=== PATIENT | female | born 1950 | race Caucasian/White ===

== ENCOUNTER 2021-08-27 09:15 | Outpatient (CLI) | payer OTHER | END 2021-08-27 09:22 | disposition home or self-care (01) | LOC: NUCLEAR 09:15 | PROVIDERS: ATTEND Internal Medicine | DX: R22.42 Localized swelling, mass and lump, left lower limb (principal) ==

== ENCOUNTER 2021-08-27 10:26 | Outpatient (CLI) | payer OTHER | END 2021-08-27 10:29 | disposition home or self-care (01) | LOC: RAD 10:26 | PROVIDERS: ATTEND Internal Medicine | DX: M79.671 Pain in right foot (principal) ==

== ENCOUNTER 2021-08-28 09:08 | Outpatient (CLI) | payer OTHER | END 2021-08-28 09:09 | disposition home or self-care (01) | LOC: NUCLEAR 09:08 | PROVIDERS: ATTEND Internal Medicine | DX: R22.42 Localized swelling, mass and lump, left lower limb (principal) ==

== ENCOUNTER 2021-09-17 08:40 | Outpatient (CLI) | payer OTHER | END 2021-09-17 08:43 | disposition home or self-care (01) | LOC: NUCLEAR 08:40 | PROVIDERS: ATTEND Internal Medicine | DX: I10 Essential (primary) hypertension (principal) ==

== ENCOUNTER 2024-11-22 10:15 | Outpatient (CLI) | payer OTHER | END 2024-11-22 10:17 | disposition home or self-care (01) | LOC: SONOGRAMA 10:15 | PROVIDERS: ATTEND Internal Medicine | DX: R80.9 Proteinuria, unspecified (principal); I10 Essential (primary) hypertension ==